=== PATIENT | female | born 1945 | race Caucasian/White ===

== ENCOUNTER 2022-01-30 13:18 | Inpatient (IN) | payer MEDICARE, BC ==
[~2022-01-30] VITALS: Ht 170.2 cm; Wt 61.2 kg
[2022-01-30] MEDS ORDERED: IV NORMAL SALINE 1000 ML BAG IV ONE (13:45)
[2022-01-30 13:51] LABS: *BILIRUBIN,URIN NEGATIVE (NEGATIVE); *BLOOD, URINE 1+ (NEGATIVE); *CLARITY,URINE CLEAR (CLEAR); *COLOR,URINE YELLOW (YELLOW); *KETONES,URINE NEGATIVE (NEGATIVE); *UROBILINOGEN,URINE 0.2 E.U./dl (NORMAL); LEUKOCYTE ESTERASE ,URINE NEGATIVE (NEGATIVE); NITRITE, URINE NEGATIVE (NEGATIVE); UGLUCOSE NEGATIVE (NEGATIVE)
[2022-01-30 13:52] LABS: HEMATOCRIT 43.2 % (31.2-41.9); MEAN CORPUSCULAR HEMOGLOBIN 33.1 uug (24.7-32.8); MEAN CORPUSCULAR VOLUME 96.1 fL (75.5-95.3); PLATELET COUNT (AUTO) 372 K/uL (179-408)
[2022-01-30] MEDS ORDERED: SWABABLE VALVE TRANSFER SET EA MC ONE (13:56)
[2022-01-30] MEDS ORDERED: IOHEXOL 350 100 ML INFUS..BTL ONE (13:56)
[2022-01-30] MEDS ORDERED: IV NORMAL SALINE 250 ML IV ONE (13:57)
[2022-01-30 13:58] LABS: *AMPHETAMINE, URINE NEGATIVE (NEGATIVE); *CANNABINOID, URINE NEGATIVE (NEGATIVE); *COCCAINE, URINE NEGATIVE (NEGATIVE); *OPIATE, URINE NEGATIVE (NEGATIVE); *PHENCYCLIDINE SCREEN,URINE NEGATIVE (NEGATIVE)
[2022-01-30 14:00] LABS: CARBON DIOXIDE 29 mmol/L (21-32); CHLORIDE 101 mmol/L (98-107); CREATININE 0.8 mg/dL (0.6-1.3); GLUCOSE 101 mg/dL (74-106); POTASSIUM 3.6 mmol/L (3.5-5.1); UREA NITROGEN, BLOOD 21 mg/dL (7-18)
[2022-01-30 14:04] LABS: ETHANOL < 3 MG/DL (0-0)
[2022-01-30 14:08] LABS: ALANINE AMINOTRANSFERASE 34 U/L (14-59); ALKALINE PHOSPHATASE 75 U/L (50-136); ASPARTATE AMINOTRANSFERASE 19 U/L (15-37); BILIRUBIN,DIRECT 0.1 mg/dL (0.0-0.2); BILIRUBIN,TOTAL 0.4 mg/dL (0.2-1.0); TOTAL PROTEIN, SERUM 7.6 g/dL (6.4-8.2)
--- NOTE | 2022-01-30 14:15 | NUR ---
Patient is still in CT scan, pending EKG & IV fluids, nursing SBAR to DANUTA Sims
--- NOTE | 2022-01-30 14:21 | NUR ---
Pt just brought back from CT tranported by director work via gurney without difficulty. pt reconnected to bedside monitor, VSS.
[2022-01-30 14:25] LABS: THYROID STIMULATING HORMONE 0.313 mIU/mL (0.358-3.740)
--- NOTE | 2022-01-30 14:30 | NUR ---
EDMD at bedside assessing pt, along with Neurologist via telemed. Telemed neuroMD interviewing pt currently. [facility] scale of 1 AAOx3, pt does not know the correct date.
[2022-01-30] MEDS ORDERED: TETRACAINE HCL 0.5% OPHT DROP 2 ML BOTTLE ONE (14:57)
[2022-01-30] MEDS ORDERED: TETRACAINE HCL 0.5% OPHT DROP 2 ML BOTTLE OP ONE (15:00)
[2022-01-30] MEDS ORDERED: ASPIRIN 81 MG TAB.CHEW PO ONE (15:00)
--- NOTE | 2022-01-30 15:05 | NUR ---
EDMD at bedside to perform tonopen exam checking IOP. IOP normal per EDMD.
--- NOTE | 2022-01-30 15:15 | NUR ---
Hospitalist Bobbi Lyon at bedside to eval pt. Pt admitted to room 319 under Provider Sonali. Will call to see if they can accept report.
--- NOTE | 2022-01-30 15:45 | NUR ---
US tech at bedside to perform gila doppler study. Pt gone to the bathroom just before hand. VSS, no s/sx of distress present.
[2022-01-30] MEDS ORDERED: ASPIRIN 81 MG TAB.CHEW ONE (16:31)
--- NOTE | 2022-01-30 16:43 | NUR ---
BLS transport here to picking crew supervisor pt for transfer to MRI diagnostic and return here to room 1B after exam is complete. Pt loaded up, VSS, PE WNL, NAD. no s/sx of distress present. ordered meds administered as ordered by EDMD.
--- NOTE | 2022-01-30 18:20 | NUR ---
Pt just returned from MRI exam transported by BLS transport via gurney. Exam was completed without incident. Pt placed back onto hospital gurney in pos of comfort. VSS, Pt has good color, temp and appearance, in good spirits, accompanied by daughter at the bedside. Transport to and from MRI was incident free. Pt reconnected to bedside monitor.
[2022-01-30] MEDS ORDERED: LORAZEPAM 0.5 MG TABLET PO PRN (18:45)
--- NOTE | 2022-01-30 19:05 | NUR ---
Pt transfered to room 319 via rney without difficulty or incident. Pt placed on bed in pos of comfort, oriented to room, given call light, bed dropped, rails up, [employer] and RN at bedside for intake. initial admit VSS. no s/sx of distress noted. Pt given 2 cups of apple juice per pt request due to her mouth being parched.
--- NOTE | 2022-01-30 19:10 | NUR ---
No s/sxof distress present.
--- NOTE | 2022-01-30 19:15 | NUR ---
PATIENT BROUGHT UP TO THE FLOOR VIA GURNEY. PATIENT AWAKE AND ALERT IN BED, WITH FAMILY AT BEDSIDE. PATIENT IS DEMANDING TO EAT. CALLED OUT TO RASHIDA AG NP FOR FURTHER ORDERS.
--- NOTE | 2022-01-30 19:45 | NUR ---
BEDSIDE SWALLOW EVAL DONE. PATIENT ABLE TO SWALLOW AND DRINK WITHOUT ANY DIFFICULTY. NEURO-CHECKS WNL. NO FACIAL DROOP NOTED. WILL CONTINUE TO MONITOR AND ASSESS.
[2022-01-30 20:00] VITALS: BP 152/74
[2022-01-30] MEDS ORDERED: TEMA15CA5 PO (20:45)
[2022-01-30] MEDS ORDERED: GABA-536 PO (20:45)
[2022-01-30] MEDS ORDERED: GABA800T11 PO (20:45)
[2022-01-30] MEDS: BLOOD SUGAR DIAGNOSTIC 1 EACH STRIP VI SCH (20:46)
[2022-01-30] MEDS ORDERED: TEMAZEPAM 15 MG CAPSULE PO PRN (21:00)
[2022-01-30] MEDS ORDERED: SIMVASTATIN 20 MG TABLET PO SCH (21:00)
[2022-01-30] MEDS ORDERED: THIAMINE HCL INJ 100 MG in IV DEXTROSE 5% 50 ML IV SCH (21:00)
[2022-01-30] MEDS ORDERED: GABAPENTIN 400 MG CAPSULE PO SCH (21:00)
[2022-01-30] MEDS ORDERED: GABAPENTIN 400 MG CAPSULE ONE (21:35)
[2022-01-30 22:17] LABS: BACTERIA,URINE FEW /HPF (NONE SEEN); SQUAMOUS EPITHELIAL CELL,UR MANY /HPF (NONE SEEN); WBC,URINE 0-3 /HPF (0-3)
[2022-01-30] MEDS ORDERED: MELO-107 PO (23:24)
[2022-01-30] MEDS ORDERED: METO-356 PO (23:24)
[2022-01-30] MEDS ORDERED: CITA40TA11 PO (23:24)
[2022-01-30] MEDS ORDERED: OMEP40CA21 PO (23:24)
[2022-01-30] MEDS ORDERED: ATOR10TA PO (23:24)
[2022-01-31] VITALS: BP 143/67
--- NOTE | 2022-01-31 | NUR ---
ON TELE SR.
[2022-01-31 04:00] VITALS: BP 139/65
[2022-01-31] MEDS: BLOOD SUGAR DIAGNOSTIC 1 EACH STRIP VI SCH (05:50)
--- NOTE | 2022-01-31 05:50 | NUR ---
PATIENT ASLEEP IN BED. SLEPT WELL THROUGHOUT THE NIGHT. ON TELE SR. VS WNL. CALL LIGHT IN REACH. ALL NEEDS ATTENDED. WILL CONTINUE TO MONITOR AND ASSESS.
[2022-01-31 06:44] LABS: CREATININE 0.7 mg/dL (0.6-1.3); POTASSIUM 3.6 mmol/L (3.5-5.1)
[2022-01-31 06:47] LABS: HEMATOCRIT 37.7 % (31.2-41.9); MEAN CORPUSCULAR HEMOGLOBIN 33.2 uug (24.7-32.8); MEAN CORPUSCULAR VOLUME 96.9 fL (75.5-95.3); PLATELET COUNT (AUTO) 303 K/uL (179-408)
[2022-01-31] MEDS ORDERED: ASPIRIN EC 81 MG TABLET.DR PO SCH (09:00)
[2022-01-31] MEDS ORDERED: GABAPENTIN 400 MG CAPSULE PO SCH (09:00)
[2022-01-31] MEDS ORDERED: SIMV-46 PO (10:12)
[2022-01-31] MEDS ORDERED: ASPI-618 PO (10:12)
[2022-01-31] MEDS ORDERED: MECLIZINE HCL 12.5 MG TABLET PO PRN (10:15)
--- NOTE | 2022-01-31 11:20 | NUR ---
Patient in bed no distress, no pain, boyfriend at bedside. patient is ready for discharge
--- NOTE | 2022-01-31 12:15 | NUR ---
Received patient in bed, she is sleeping and said she wants to sleep for another couple hours
[2022-01-31] MEDS ORDERED: GADOTERATE MEGLUMINE 10 MMOL/20 ML VIAL IV ONE (16:55)
[2022-01-31] MEDS ORDERED: THIAMINE HCL 100 MG TABLET PO SCH (21:00)
[2022-02-01] MEDS ORDERED: PANTOPRAZOLE SODIUM 40 MG TABLET.DR PO SCH (07:00)
[2022-02-01] MEDS ORDERED: Medication Not On Formulary EA (Omeprazole 1 CAP) PO SCH (09:00)
[2022-02-01] MEDS ORDERED: CITALOPRAM 20 MG TABLET PO SCH (09:00)
[2022-02-01] MEDS ORDERED: METOPROLOL SUCCINATE XL 25 MG TAB.SR.24H PO SCH (09:00)
[2022-02-01] MEDS ORDERED: MELOXICAM 7.5 MG TABLET PO SCH (09:00)
[2022-02-01] MEDS ORDERED: Medication Not On Formulary EA (Citalopram Hydrobromide (Citalopram Hbr) 1 TAB) PO SCH (09:00)
== END 2022-01-31 12:30 | disposition home or self-care (01) | DRG 880 ==
LOC: ER 13:18 → TELE3 18:58
PROVIDERS: ADMIT Nurse Practitioner Acute Care; ATTEND Nurse Practitioner Acute Care
DX: F44.9 Dissociative and conversion disorder, unspecified (principal); G93.41 Metabolic encephalopathy; F05 Delirium due to known physiological condition; G45.4 Transient global amnesia; E78.5 Hyperlipidemia, unspecified; F41.9 Anxiety disorder, unspecified; I10 Essential (primary) hypertension; H53.8 Other visual disturbances; Z72.89 Other problems related to lifestyle
CPT/HCPCS: 36415; 70450; 70496; 70553; 71045; 84443; 84484; 85025; 85730; 87086; 93005; 93307; 93880; A4663; A9575; G0378; G0480; J3411; J7040; Q9967